=== PATIENT | male | born 1970 | race Caucasian/White ===

== ENCOUNTER 2018-03-15 01:51 | Outpatient (CLI) | payer MEDICAID, SELFPAY ==
[2018-03-15 08:35] LABS: HCT 45.3 % (40.0-50.0); HGB 15.6 g/dL (13.5-17.5); Mean Corp. HGB Concentration 34.4 g/dL (32.0-36.0); Mean Corpuscular Volume 90.1 fL (80-95); Mean Platelet Volume 9.7 fL (8.0-11.0); Platelet Count 231 x1000/uL (130-400); RBC 5.03 m/cumm (4.50-6.00); RBC Distribution Width 13.6 % (11.8-14.1); White Blood Cell Count 6.58 k/cumm (4.4-10.8)
[2018-03-15 09:47] LABS: ALT 42 U/L (12-78); AST 25 U/L (15-37); Albumin 3.6 g/dL (3.4-5.0); Alkaline Phosphatase 82 U/L (46-116); Anion Gap 8.6 mmol/L (3-11); BUN 17 mg/dL (7-18); Bilirubin, Total 0.4 mg/dL (0.2-1.0); CO2 28.4 mmol/L (21.0-32.0); CREATININE 1.26 mg/dL (0.70-1.30); Calcium 8.4 mg/dL (8.5-10.1); Chloride 105 mmol/L (98-107); Cholesterol 225 mg/dL (50-200); Glucose 88 mg/dL (70-100); HDL Cholesterol 38 mg/dL (40-60); LDL CHOLESTEROL 171 mg/dL (<100); Potassium 4.2 mmol/L (3.5-5.1); Sodium 142 mmol/L (136-145); Total Protein 6.9 g/dL (6.4-8.2); Triglyceride 122 mg/dL (30-150)
== END 2018-03-15 02:11 ==
PROVIDERS: PCP Family Medicine; Visit Provider Family Medicine
DX: Z13.220 Encounter for screening for lipoid disorders (principal); Z13.228 Encounter for screening for other metabolic disorders; Z13.0 Encounter for screening for diseases of the blood and blood-forming organs and certain disorders involving the immune mechanism; Z00.00 Encounter for general adult medical examination without abnormal findings
CPT/HCPCS: 36415; 80053; 80061; 83721; 85027

== ENCOUNTER 2018-05-14 06:11 | Day surgery (SDC) | payer MEDICAID, SELFPAY ==
[2018-05-14 06:22] VITALS: BP 134/87; PULSE 68; RESP 18; TEMP 36.7; O2SAT 96
[2018-05-14] MEDS: Lactated Ringers 1,000 ML 80 ML IV (06:43)
--- NOTE | 2018-05-14 06:45 | COLE_ITS ---
Date of service: 05/14/18 Time of Service: 08:41 Colonoscopy Report Date of procedure: 05/14/18 Pre-op diagnosis general: Family history of colon Cancer/ Screening Colonoscopy Post-op diagnosis procedure note: other (Right sided diverticulosis/ rectal polyp) Procedure: Colonoscopy with polypectomy by hot snare Surgeon: Bhakti Mendez Anesthesia proc note operative: MAC (Tere nielsen, STEREO OPERATOR/ ASA 3) Estimated blood loss (mL): 3 Pathology: other (rectal polyp) Complications: None Disposition: same day Indications: Mr. De Oliveira is a pleasant 47-year-old gentleman who was seen in the office for his first colonoscopy. He has a family history of colon cancer in his grandmother. Risks, benefits, complications were reviewed with him and he wished to proceed. No guarantees were given or implied. Prep: Miralax/Dulcolax Procedure Start Time: 08:41 Procedure End Time: 09:10 Retraction Time: 19 minutes Findings: Mild Right sided diverticulosis One rectal polyp (? skin tag) Procedure Description: After informed consent was obtained the patient was taken to the procedure room and placed in a left decubitous position. Monitors were applied and a time out was done. The patients name, date of , procedure, allergies to medications and metal in their body was reviewed. The patient was then sedated. Once sedated and comfortable a rectal exam was done. External exam was normal. Internal exam revealed a normal sphincter tone and there was one palpable polyp. The prostate could not be felt. The scope was then introduced and retro-flexed. No internal hemorrhoids were identified. There was a rectal polyp, possibly skin tag. The scope was then advanced to the cecum without difficulty. The TI and appendiceal orifice were identified. The prep was good. The scope was then slowly retracted over 19 minutes back into the rectum. The rectal polyp was removed with a hot snare. There was also some mild right sided diverticulosis. The scope was removed and the patient was woken up and taken back to Same day surgery in stable condition. The patient tolerated the procedure well and there were no immediate complications. Follow up: The patient should follow up in 5 years unless they develop changes in bowel habits or other new gastrointestinal complaints.
--- NOTE | 2018-05-14 06:48 | PDOC.DSDIS_ITS ---
Discharge Plan Disposition Patient Disposition: HOME Condition: Good Discharge Details Reason For Visit: SCREENING/ Family history Attending Provider: Bhakti Mendez Primary Care Provider: Rodri Joseph Home Meds and New Rx's Prescriptions: Continue atorvastatin 20 mg tablet 20 mg PO DAILY Qty: 90 RF: 3 coenzyme Q10 [CoQ-10] 30 mg Capsule 30 mg PO DAILY RF: 0 Discharge Instructions Instructions: Colonoscopy (DC), Diverticulosis (DC), Colorectal Polyps (DC) Additional Instructions: Findings: 1. Rectal polyp 2. Mild diverticulosis Follow up: 5 years new medications: none Please call if you develop: fevers >101.5 Nausea or Vomiting Abdominal pain that is not transient DAY SURGERY UNIT POST COLONOSCOPY INSTRUCTIONS 1. Because there will be medication in your system for the next 24 hours, you may feel a little sleepy. Your coordination will be affected. Therefore: a. Do not drive or operate dangerous equipment for 24 hours. b. Do not drink alcohol beverages for 24 hours (not even beer). c. Plan to go home and rest for the day. 2. Generally there are no restrictions on your activity after a day or so has gone by, but you may feel a bit fatigued for a few days. 3 After you arrive home you may have a light meal and return to a normal diet as you can tolerate it without feeling sick to your stomach. 4. After surgery, you may feel pain or discomfort. This should be only transient , but if it persists please contact your doctor. 5. If there are any questions regarding the findings of your procedure, please feel free to contact your doctor. 6. If you are unable to contact your doctor with a problem, contact the hospital at [phone]. 7. Continue all your regular medications unless directed otherwise. I understand the above instructions and have no questions. Signature of Patient or Responsible Adult Escort Date/Time Name of Responsible Adult Escort Signature of Nurse Date/Time Activity:: Activity as Tolerated Diet:: high fiber diet Discharge Orders Discharge Orders: Discharge Order (Routine); Ordered 05/14/18 Ordered By: Bhkati Mendez DS: Diagnosis Discharge Diagnosis (1) Rectal polyp: Status: Acute (2) Diverticulosis: Status: Acute (3) S/P colonoscopy: Status: Acute
--- NOTE | 2018-05-14 09:10 | BOWEL_PTH ---
PATIENT: Abel De Oliveira LOC: [facility] U#:[id number] AGE/SX: 47/M ROOM: RE05/14/[address]: Bhakti Mendez MD : 1970 BED: DIS: 05/14/2018 SPEC #: [id number] RECD: 05/14/18 11:33 STATUS: DANIEL RE #: [id number] BG: 05/14/18 09:[address]: Bhakti Mendez DEPT: Surgical Specimen RECD BY: Sandie Aceves ENTERED: 05/14/18 11:33 SP TYPE: Bowel OTHR DR: Rodri Joseph MD Tissues: 1 - BIOPSY BOWEL Procedures: GROSS AND MICRO LEVEL 4 Comments: [id number]
[2018-05-14 09:41] VITALS: BP 123/85; PULSE 59; RESP 18; TEMP 36.7; O2SAT 96
== END 2018-05-14 10:00 | disposition home or self-care (01) ==
PROVIDERS: PCP Family Medicine; Visit Provider Surgery
PROC: 0DJD8ZZ Inspection of Lower Intestinal Tract, Via Natural or Artificial Opening Endoscopic (ICD-10-PCS; CPT 45378; principal; 2018-05-14 07:30)
DX: Z12.11 Encounter for screening for malignant neoplasm of colon (principal); K62.1 Rectal polyp; K57.30 Diverticulosis of large intestine without perforation or abscess without bleeding; Z80.0 Family history of malignant neoplasm of digestive organs
CPT/HCPCS: 45385; 88305

== ENCOUNTER 2019-08-27 08:53 | Outpatient (CLI) | payer MEDICAID, SELFPAY ==
[2019-08-27 11:41] LABS: ALT 35 U/L (16-63); AST 20 U/L (15-37); Albumin 3.9 g/dL (3.4-5.0); Alkaline Phosphatase 63 U/L (46-116); Anion Gap 7.6 mmol/L (3-11); BUN 19 mg/dL (7-18); Bilirubin, Total 0.4 mg/dL (0.2-1.0); CO2 30.4 mmol/L (21.0-32.0); CREATININE 1.05 mg/dL (0.70-1.30); Calcium 8.8 mg/dL (8.5-10.1); Calculated LDL 124 mg/dL (<100); Chloride 102 mmol/L (98-107); Cholesterol 183 mg/dL (<200); Glucose 85 mg/dL (74-106); HDL Cholesterol 44 mg/dL (40-60); Potassium 4.4 mmol/L (3.5-5.1); Sodium 140 mmol/L (136-145); Total Protein 7.2 g/dL (6.4-8.2); Triglyceride 78 mg/dL (<150)
== END 2019-08-27 09:13 ==
PROVIDERS: PCP Family Medicine; Visit Provider Family Medicine
DX: E78.5 Hyperlipidemia, unspecified (principal)
CPT/HCPCS: 36415; 80053; 80061

== ENCOUNTER 2019-08-28 09:33 | Outpatient (CLI) | payer MEDICAID, SELFPAY ==
--- NOTE | 2019-08-28 10:15 | DI.US_ITS ---
EXAM: US SCROTUM AND US HERNIA CLINICAL HISTORY: right scrotal/inguinal mass, R19.09 TECHNIQUE: Ultrasound performed using standard protocol. COMPARISON: US HERNIA from 08/28/2019 FINDINGS: Scrotal ultrasound and ultrasound of the inguinal region are interpreted in conjunction. The testes are homogeneous in echotexture and show normal vascular flow with no intra testicular mass identified . The epididymi are unremarkable in appearance bilaterally. No hydrocele seen. There are bilateral varicoceles which measure 3.5-4 cm in diameter bilaterally. There is indeterminate finding of dilated spermatic cord versus which may be associated with a small right inguinal hernia, the findings are somewhat inconclusive and correlation with abdominal and pelv ic CT is recommended to evaluate the possibility hernia. DATA REPOSITORY:
== END 2019-08-28 09:53 ==
PROVIDERS: PCP Family Medicine; Visit Provider Family Medicine
DX: N50.89 Other specified disorders of the male genital organs (principal); I86.1 Scrotal varices; R10.31 Right lower quadrant pain
CPT/HCPCS: 76857; 76870

== ENCOUNTER 2019-09-11 00:45 | Outpatient (CLI) | payer MEDICAID, SELFPAY ==
--- NOTE | 2019-09-11 06:30 | DI.CT_ITS ---
EXAM: CT ABDOMEN PELVIS W CLINICAL HISTORY: F/U ABNL US,INGUINAL MASS,R19.09. TECHNIQUE: Imaging Protocol: Axial computed tomography images with coronal and sagittal reformatted images were created and reviewed CONTRAST MATERIAL: Intravenous: Omnipaque 350 Contrast volume:100 ml Oral: yes COMPARISON: US HERNIA from 08/28/2019 FINDINGS: ABDOMEN: Lung Bases: Normal where visualized. Liver: Mild hepatic steatosis. No measurable mass. Gallbladder and biliary tract: No radiodense calculus or dilation. Pancreas: Normal density, no abnormal calcifications or inflammatory process. Spleen: Normal. Kidneys: Normal size, contour and axis. No radiodense stones or obstructive uropathy. No masses seen. Adrenal glands: No masses seen. Abdominal Aorta: Abdominal portion non-dilated. Soft tissues: There is a small fatty containing umbilical hernia. There is a small fatty containing left inguinal hernia. The appendix is seen extending into the right inguinal canal along with mesent michelle fat. The base of the cecum lies at the orifice of the hernia. PELVIS: Bladder: Symmetric distention, no gross wall thickening. Bowel: No obstruction or bowel wall thickening. There is no free air or free fluid. Peritoneal cavity: No ascites, collection or mesenteric inflammatory response. Bones: Mild degenerative disc changes. Reproductive organs: Within normal limits. Lymph nodes: Unremarkable. Impression: Right inguinal hernia containing mesenteric fat as well as the appendix. There is no evidence of laquita endicitis. A small fatty containing left inguinal hernia and small fatty containing umbilical hernia are also seen.. DATA REPOSITORY: All CT scans at this facility are submitted to the National Radiology Data Registry (NRDR) Dose Index Registry (DIR) with the [employer] (ACR). RADIATION OPTIMIZATION: All CT scans at this facility use at least one of these dose optimization te chniques: automated exposure control; mA and/or kV adjustment per patient size (includes targeted exa ms where dose is matched to clinical indication); or iterative reconstruction.
[2019-09-11] MEDS: Omnipaque 350 MG/ML 100 ML BTL IJ (09:35)
[2019-09-11] MEDS: Omnipaque 350 MG/ML 50 ML BTL PO (09:36)
== END 2019-09-11 01:05 ==
PROVIDERS: PCP Family Medicine; Visit Provider Family Medicine
DX: R19.03 Right lower quadrant abdominal swelling, mass and lump (principal); K40.20 Bilateral inguinal hernia, without obstruction or gangrene, not specified as recurrent; K42.9 Umbilical hernia without obstruction or gangrene; K76.0 Fatty (change of) liver, not elsewhere classified
CPT/HCPCS: 74177; J3490; Q9967

== ENCOUNTER 2019-09-16 12:45 | Observation (INO) | payer MEDICAID, SELFPAY ==
[2019-09-16] VITALS (15 sets, daily range): BP systolic 103–137; BP diastolic 69–89; PULSE 51–68; RESP 13–21; TEMP 36.1–36.6; O2SAT 94–99
[2019-09-16] MEDS: Acetaminophen 500 MG TAB 1000 MG PO ×3 (08:36→20:38)
[2019-09-16] MEDS: Gabapentin 300 MG CAP PO (08:37)
[2019-09-16] MEDS: Normal Saline 1,000 ML 120 ML IV (08:50)
[2019-09-16] MEDS: ceFAZolin 2 GM/50 ML BAG IVPB (09:26)
[2019-09-16] MEDS: Bupivacaine 0.25% Pres-Free 10 ML VIAL (09:47)
[2019-09-16] MEDS: Bupivacaine 0.25% Pres-Free 30 ML VIAL (09:47)
[2019-09-16] MEDS: PIPERACILLIN/TAZO 4.5 GM in Normal Saline 100 ML IVPB ×2 (11:40→20:40)
--- NOTE | 2019-09-16 11:45 | APP_PTH ---
PATIENT: Abel De Oliveira LOC: U#:[id number] AGE/SX: 49/M ROOM: 229 RE09/16/[address]: Jaci Adnrews : 1970 BED: A DIS: 09/17/2019 SPEC #: [id number] RECD: 09/16/19 17:42 STATUS: DANIEL REQ #: [id number] BG: 09/16/19 11:[address]: Jaci Andrews DEPT: Surgical Specimen RECD BY: Sandie Aceves ENTERED: 09/16/19 17:43 SP TYPE: Appendix OTHR DR: Rodri Joseph MD Tissues: 1 - APPENDIX NOT INCIDENTAL Procedures: GROSS AND MICRO LEVEL 3 Comments: [id number]
--- NOTE | 2019-09-16 12:32 | W.PM.OP ---
Date of service: 09/16/19 Time of Service: 12:32 Operative Note Operative Note DATE OF PROCEDURE: 09/16/19 PRE-OP DIAGNOSIS: R non- reducible inguinal hernia w/ bowel. small L inguinal hernia w/ lipoma only POST-OP DIAGNOSIS: other PROCEDURE: L groin exploration and ligation x3 lipomas. no mesh R groin exploraiton. exicion of lipoma. open repair w/ mesh. appendectomy SURGEON: Jaci Andrews PROFESSIONAL SYSTEM ADMINISTRATOR: Javier Ochoa PROFESSIONAL SYSTEM ADMINISTRATOR: Ira Stroud ANESTHESIA: regional, local and spinal ESTIMATED BLOOD LOSS: 8 Patient was transported to: PACU Patient's condition: stable Implants: see RN notes R mesh Procedure Description: COMPLICATIONS: The patient tolerated the procedure well without complications. INDICATIONS: regarding symptomatic right inguinal hernia that has failed outpatient conservative medical management and he is here today for repair, as well as a small left inguina lhernia noted on CT only containing fat. Informed consent was obtained, explaining risks and benefits of the procedure including but not limited to bleeding, infection, pneumonia, blood clots, chronic pain, chronic numbness, damage to testicle resulting in removal, recurrence, reaction to Mesh necessitating removal, and other unforetold complications and complications of anesthesia. .dict.
[2019-09-16] MEDS: Lactated Ringers 1,000 ML 100 ML IV (12:47)
[2019-09-16] MEDS: Normal Saline 1,000 ML 75 ML IV (13:28)
--- NOTE | 2019-09-16 14:02 | ROE_ITS ---
DATE: September 16, 2019 Preoperative Diagnosis: Small left inguinal hernia containing fat only and right inguinal hernia containing colon and appendix. Postoperative Diagnosis: Same. Operation: Left open groin exploration and repair of hernia without mesh. Right open inguinal groin exploration, appendectomy and right inguinal hernia repair with mesh. Surgeon: Jaci Andrews D.O. Hammer Operator: Luis Eduardo Wagner PA Anesthesia: Spinal and bilateral TAP block Estimated Blood Loss: 8 cc. The patient tolerated the procedure without complications. History: Mr. De Oliveira is a 49 year-old male seen at the request of Dr. Joseph, his primary care provider, regarding a symptomatic right inguinal hernia and is here today for repair. The right inguinal hernia is quite large. It does contain part of his colon and his appendix. It is not reducible but is not strangulated. The left hernia is a small incidental CT finding. I discussed the pros and cons of repair with the patient and his . He has decided to do both sides today and hopefully go home the same day. Informed consent was obtained explaining the risks and benefits of the procedure including, but not limited to bleeding, infection, pneumonia, blood clots, chronic pain, chronic numbness, damage to the testicle, recurrence, reaction to the mesh requiring removal, complications of anesthesia and other unforetold complications. Procedure: Spinal anesthesia was administered per the Department of Anesthesia and preop TAP blocks are done under ultrasound guidance by anesthesia as well. The patient was then placed in the supine position and all surfaces padded. He was prepped and draped in the usual sterile fashion using Betadine scrub solution. Time-out was performed. He did receive preop antibiotics of a first generation cephalosporin. 10 cc. per side of 1/4% Lidocaine was used for local anesthetization. The left side was tended to first. A #10 blade was used to make an incision in the left groin 2 finger breadths above the ilioinguinal ligament. Electrocautery was used to provide hemostasis and dissect down to the cord. His external oblique is obliterated. The cord structures were elevated and a drain was placed across for manipulation. He has two large lipomas that are dissected off the cord and these are tied off and then returned to the abdominal cavity. His external ring does not appear enlarged and will only admit the tip of the fingertip and is not really enlarged so that we even can fit a small mesh into it. One stitch of #0 Vicryl was placed to tighten this area up slightly but a mesh was not placed. Vessels and cord structures are still freely mobile. The site was irrigated. Deep tissues were approximated with #2-0 Vicryl in a running fashion. The skin was closed with #4-0 Monocryl in a running subcuticular fashion and skin clue. Gloves and sharps were exchanged. The right side was then attended to. Again 10 cc. of 1/4% Marcaine was used for local anesthetization. #10 blade was used to make a 2.5 inch incision over the external ring. Electrocautery was used to dissect down to the cord structures. Again the external oblique was obliterated. There was a lot of scarring around the cord. The cord is elevated and dissected out.There is an indirect sac on the cord. This is dissected out and returned to the abdominal cavity. Independently of the sac, and not within the sac, his appendix is herniated through the external ring and is intimately adhered to the cord structures and down into his scrotum as well as a large piece of epiploicae and fatty tissue that is hanging off the appendix. The appendix and all the fatty mesenteric attachments are dissected off the cord and off the scrotum and part of the tip of the cecum as well. When we attempt to return this through the canal and into the abdomen, I cannot get the entirety of the fatty attachments back into the abdomen and it causes pretty significant nausea and the patient actually vomited. He did not aspirate. He was awake and able to protect his airway throughout the procedure. Even with removing some of the fatty attachments with the LigaSure, I still cannot reduce the volume of contents that is attached to the appendix and get this to return into the abdominal cavity. A decision was then made to remove the appendix. Towels were placed along the field to isolate the appendix. The appendix is then dissected off. The artery was dissected out and clips are placed across this and this is ligated. A JUDSON stapler was placed across the base of the appendix excising the appendix from the cecum and then the stump is buried with two stitches of #4-0 Vicryl. Fatty attachments again are taken down from the cecum using LigaSure and all mesentery is passed off the field. All instruments that were used to do the appendectomy are then passed off the field. Gloves are changed and towels are removed and clean towels and instruments are used. There was no bleeding or enteric leakage. We were able to reduce this volume into the abdomen easily and without causing the patient discomfort or vomiting. His external ring is dilated. He certainly has a hernia but it is not that large. A large plug is then placed into the external ring and over-sewn using #4-0 Vicryl. The patch was then placed in the pubic tubercle and brought around the cord structures and tucked under the remnant of the external oblique. He really does not have much in the way of fascial left to sew to. The cord structures are intact. No nerve could be identified on either side. The wounds were both copiously irrigated prior to closure. Again deep tissues were approximated in two layers using #2-0 Vicryl, the skin was closed with #4-0 Monocryl and skin glue was applied. The patient tolerated the procedure well without complications and transferred to the Recovery Room in stable condition. Because we did do an appendectomy, and I elected to place the mesh, we will admit him overnight for observation, for IV antibiotics and pain control. The patient and is were apprised of the findings. He did well during surgery.
[2019-09-16] MEDS: Lactobacillus Acidophilus CAP 1 CAP PO ×2 (14:54→20:39)
[2019-09-16] MEDS: Ketorolac 30 MG/ML VIAL IVP ×2 (16:25→21:44)
--- NOTE | 2019-09-16 16:38 | W.PM.PROGNOT ---
Date of Service Date of service: 09/16/19 Time of Service: 16:38 Assessment and Plan Assessment and plan (1) S/P inguinal hernia repair using synthetic patch: Status: Acute Assessment and plan: also s/p appendectomy . I discussed with the patient and/or there family about the findings in surgery and the pt's progress. We reviewed expectations for progress in the hospital; what the pt could expect for recovery time and length of stay. We discussed the importance of walking and pulmonary toilet to avoid blood clots and pneumonia. Continue current plans for pulmonary toilet, GI and DVT prophylaxis. We shall continue the current plan for pain management as it is at an appropriate level and working well for the pt. Appropriate measures will be taken for constipation prevention as well, and this was also reviewed with the pt. wound care plan was reviewed with nursing as well. -pt has not urinated again- orders left for st cath prn -abx and probiotics for 5 days. monitor for infection -no heavy lifting for 2 wks -supportive post OP cares. see orders Subjective Subjective Interval history since last seen: pt doing ok. No pain yet. also has not urinated yet. d/w pt findings at the time of surgery. I did reviewed his appendix. But that put him at higher risk for mesh infection. Will keep him in hosp on IV abx. will d/c pt home on abx. The patient is doing well post-op. There pain is well controlled. They are having no nausea or vomiting. The pt is not having any chest pain or SOB, productive cough; no calf pain or swelling. The pt pain is adequately controlled. The case was discussed with nursing and patients progress reviewed. All of the pt's home medications were addressed and adjusted accordingly. Exam Const Other: HEENT: no janudice. no eye pain/drainage/redness/swelling. mild sore throat cardio- NSR no chest pain, BP stable. pulm: no sob or productive cough. no hemoptysis insicion- clean/dry. dressing intact no excessive bleeding or drainage Objective Objective Clinical Data: Vital Signs Temperature 36.6 C 09/16/19 15:10 Temperature Source Temporal Artery Scan 09/16/19 15:10 Pulse 66 09/16/19 15:10 Pulse Rhythm Regular 09/16/19 08:11 Respiratory Rate 18 09/16/19 15:10 Blood Pressure 137/80 09/16/19 15:10 Pulse Oximetry 95 09/16/19 15:10 Oxygen Delivery Method Room Air 09/16/19 15:10 Oxygen Flow Rate 0 09/16/19 15:10 Pain Level 3 09/16/19 15:10 Intake & Output 09/15/19 09/16/19 09/16/19 23:59 11:59 23:59 Intake Total 50 / 1360 1310 / 1360 Balance 50 / 1360 1310 / 1360 Weight 130.635 kg 130.635 kg Intake: IV 50 / 1160 1110 / 1160 Oral 200 / 200 Other: Emesis Description None
[2019-09-16] MEDS: Docusate Sodium 100 MG CAP PO (20:38)
[2019-09-16] MEDS: Normal Saline Flush 10 ML SYR IVP (21:44)
--- NOTE | 2019-09-16 22:23 | DSE_ITS ---
Date of service: 09/17/19 Time of Service: 08:00 DS: Diagnosis Discharge Diagnosis (1) S/P inguinal hernia repair using synthetic patch: Status: Acute (2) S/P appendectomy: Status: Acute Discharge Plan Disposition Patient Disposition: HOME Condition: Improving Discharge Details Reason For Visit: S/P OPEN B/L INGUINAL HERNIAS W/MESH &APPENDECTOMY Admit Date/Time: 09/16/19 12:45 Admit Provider: Jaci Andrews Attending Provider: Jaci Andrews Primary Care Provider: Rodri Joseph Home Meds and New Rx's Prescriptions: New tramadol 50 mg Tablet 50 mg PO Q6H PRN PRN (Reason: Pain) 14 Days Qty: 20 RF: 0 ibuprofen 600 mg tablet 600 mg PO Q6H PRN (Reason: pain) 21 Days Qty: 60 RF: 3 Lactobacillus acidophilus 1 billion cell capsule 1,000 mmu cells PO BID 30 Days Qty: 60 RF: 3 amoxicillin-pot clavulanate [Augmentin] 875-125 mg tablet 1 tab PO Q12H Qty: 10 RF: 0 Continued atorvastatin 20 mg tablet 20 mg PO DAILY Qty: 90 RF: 3 Discharge Instructions Additional Instructions: HERNIA REPAIR ? POSTOPERATIVE INSTRUCTIONS Patients who have this type of surgery can usually be expected to return to work within two- three weeks and have minimal amounts of discomfort. ? ACTIVITY: The day of surgery should be spent resting. However, you can be up for short periods of time, I.E., going to the bathroom or kitchen. Avoid lifting or straining. On the day following surgery, you can be up and about as desired. ? LIFTING: Restrict your lifting to no more than five (5) pounds for the first week following surgery. ? DIET: There are no dietary restrictions following surgery. However, you may want to start with small amounts of liquids to avoid nausea the day of surgery. ? INCISION CARE: After 24 hours you may shower. An ice bag may be applied to the incision for 72 hours following surgery. Always wrap the ice in a towel; do not apply ice directly to skin. Than Twenty minutes on and 20 minutes off. ? SIGNS OF INFECTION: It is not unusual to have some black and blue discoloration of the skin around the incision, but also scrotum and penis. It will slowly disappear. If you have any increased redness, drainage, fever (above 100 degrees), please contact your doctor for an examination. ? DISCOMFORT: You may expect to have some mild discomfort at the incision sight. If severe pain develops you should contact your doctor for further instructions. ? URINATION: Patients who have surgery occasionally have problems urinating. If you experience problems and are not able to urinate within 6 hours following your surgery, please call your doctor immediately or go to your nearest Emergency Room for evaluation. ? DRIVING: NO driving for five (5) days after surgery ? MEDICATIONS: Alternate Tylenol 1000mg by mouth every 8hours and Ibuprofen 600mg every 6hours. Take the Tylenol and ibuprofen continuously for the first 72hrs- not just when you have pain. Use the tramadol for breakthrough pain. Use ice 20 minutes off/on continuously for the first 72hours. If you are taking narcotic pain medication, follow the instructions on the label and do not drive. Pain medications can make you very constipated. Make sure you are moving your bowels daily. If not, take Miralax, milk of magnesia or magnesium citrate. ? REPORT: Unusual swelling, severe pain, unresolved nausea, signs of infection, or difficulty in urination to your surgeon. Follow up in clinic with Dr. Andrews on Monday. [phone] Stand Alone Forms: Nursing Discharge Form Referrals: Jaci Andrews DO [OSTEOPATHIC DOCTOR] - 09/20/19 10:00 am Activity:: no lifting over 5#'s x2 wks. no driving for 5 days Equipment/Supplies:: No Equipment Needed Diet:: Normal Diet Discharge Orders Discharge Orders: Discharge Order (Routine); Ordered 09/17/19 Ordered By: Jaci Andrews DS: Summary Status at Discharge Functional status at discharge: independent ambulation Overall status at discharge: patient is back to baseline Mental Status: mental status grossly normal Speech and Movement: speech and movement normal Mood: congruent mood Affect: normal affect Exam Psych Mental Status: mental status grossly normal Speech and Movement: speech and movement normal Mood: congruent mood Affect: normal affect DS: Data Vitals/I&O Vitals and I&O: Vital Signs Temperature 36.6 C 09/16/19 21:06 Temperature Source Tympanic 09/16/19 21:06 Pulse 61 09/16/19 21:06 Pulse Rhythm Regular 09/16/19 21:59 Respiratory Rate 18 04/06/20 21:55 Respiratory Effort 09/16/19 21:59 Respiratory Depth Normal 09/16/19 21:59 Respiratory Pattern Normal 09/16/19 21:59 Blood Pressure 130/86 09/16/19 21:06 Pulse Oximetry 99 09/16/19 21:55 Oxygen Delivery Method Room Air 09/16/19 21:55 Oxygen Flow Rate 0 09/16/19 21:55 Pain Level 2 09/16/19 21:44 Intake & Output 09/15/19 09/16/19 09/16/19 23:59 11:59 23:59 Intake Total 50 / 1460 1410 / 1460 Output Total 250 / 250 Balance 50 / 1210 1160 / 1210 Weight 130.635 kg 130.635 kg Intake: IV 50 / 1160 1110 / 1160 Oral 300 / 300 Output: Urine 250 / 250 Other: Urine Color Yellow Urine Appearance Clear Urine Odor None Emesis Description None Voiding Methods Toilet FOR[facility] Medical History (Updated 09/16/19 @ 09:06 by Jaci Andrews DO) Bilat ing hernia (Acute) Family history of colon cancer (Chronic) Per Dr Joseph note, grandmother of colon cancer at age 65 and patient with fecal urgency after eating. Fecal urgency (Acute) HTN (hypertension) (Chronic) 09/13/19: Per pt. -BR Pain of left heel (Acute) Patellofemoral disorder of left knee (Acute) Plantar fasciitis of left foot (Acute) Testicle lump (Chronic) right Varicose veins of both lower extremities (Chronic) Surgical History (Updated 09/17/19 @ 09:53 by Jaci Andrews DO) H/O cataract removal with insertion of prosthetic lens (Acute) 09/13/19: Pt unsure which side he had surgery on. -BR H/O colonoscopy (Chronic) H/O vasectomy (Acute) S/P appendectomy (Acute) S/P inguinal hernia repair using synthetic patch (Acute) Social History Smoking/Tobacco Use Status: Current every day Tobacco Type: smokeless tobacco Smokeless tobacco user: chewing tobacco Quit status: considering quitting Alcohol Intake: current Alcohol Intake frequency: a few times a month Alcohol type: beer Drug use: Never Substance use type: does not use Do you feel safe at home: Yes Do you feel safe in your relationship?: Yes
[2019-09-17] MEDS: Acetaminophen 500 MG TAB 1000 MG PO ×2 (01:15→08:46)
[2019-09-17] MEDS: Normal Saline Flush 10 ML SYR IVP ×4 (01:17→11:22)
[2019-09-17] MEDS: Ketorolac 30 MG/ML VIAL IVP ×2 (03:29→11:22)
[2019-09-17] MEDS: PIPERACILLIN/TAZO 4.5 GM in Normal Saline 100 ML IVPB ×2 (03:33→11:21)
[2019-09-17 04:22] VITALS: O2SAT 99
[2019-09-17 04:35] VITALS: BP 136/82; PULSE 56; RESP 18; TEMP 36.7; O2SAT 98
[2019-09-17 07:48] VITALS: BP 129/86; PULSE 60; RESP 17; O2SAT 99
[2019-09-17] MEDS: Docusate Sodium 100 MG CAP PO (08:44)
[2019-09-17] MEDS: Lactobacillus Acidophilus CAP 1 CAP PO (08:44)
--- NOTE | 2019-09-17 10:57 | PDOC.CMIN ---
- If Service Date Differs Date of service: 09/17/19 Time of Service: 10:57 Care Management Initial Assess REASON FOR HOSPITALIZATION:: left inguinal hernia PAST MEDICAL HISTORY/PAST SURGICAL HISTORY:: PMH: Bilateral inguinal hernia, HTN, fecal urgency, patellofemoral disorder of left knee, varicose veins, bilateral LE, testicle lump. PSH: cataract extraction, colonoscopy, vasectomy, inguinal hernia repair with appendectomy PREVIOUS FUNCTIONAL STATUS/SOCIAL/FAMILY SUPPORTS:: Abel lives with his Rohini and 2 children in a single family home in [facility]. He is independent with all activities and self care and is self-employed as a line haul truck driver. He does not receive any community services. ADVANCE DIRECTIVES:: None on file Has patient been provided with information about the portal?: No Did the patient sign up for the portal?: No CODE STATUS:: Full Code INSURANCE COVERAGE / FINANCIAL ISSUES:: Medicaid CURRENT HOME/COMMUNITY SERVICES/EQUIPMENT:: none currently PRIMARY CARE PHYSICIAN:: Rodri Coleman POTENTIAL DISCHARGE NEEDS:: Follow up with PCP, surgeon and discharge plan of care PATIENT/FAMILY EDUCATION NEEDS:: Discharge plan, limitations, follow up plan and Ask Me Three. TRANSPORTATION:: via private vehicle with family PLAN:: Abel will be discharged home with no new services. He will foillow up with his surgeon and dicharge plan of care. He will transport via private vehicle with his .
--- NOTE | 2019-09-17 16:02 | PDOC.CMDIS ---
- If Service Date Differs Date of service: 09/17/19 Time of Service: 16:02 LACE Index Scoring Tool - Questions: Length of Stay (in days): 1 Acuity (Admit via E.D.?): No E.D. Visits: 0 - Answers: Total Score: 1 Risk of Readmission: Low Risk Care Management Discharge Reason for Hospitalization: left inguinal hernia Discharge Plan: Abel will be discharged home with no new services. He will foillow up with his surgeon and dicharge plan of care. He will transport via private vehicle with his . Patient/Family Education Needs: Discharge plan, limitations, follow up plan and Ask Me Three.
[2019-09-18 10:16] LABS: HIV-1/2 Ag & Ab Screen Negative (Negative)
[2019-09-18 10:17] LABS: Hepatitis C Ab w Rflx HCV PCR Negative (Negative)
== END 2019-09-17 12:52 | disposition home or self-care (01) ==
LOC: MS 13:26
PROVIDERS: Admitting Provider Surgery; PCP Family Medicine; Visit Provider Surgery
PROC: 0YU50JZ Supplement Right Inguinal Region with Synthetic Substitute, Open Approach (ICD-10-PCS; CPT 49505; principal; 2019-09-16 09:00)
PROC: 0DTJ0ZZ Resection of Appendix, Open Approach (ICD-10-PCS; CPT 44950; 2019-09-16 09:00)
DX: K40.30 Unilateral inguinal hernia, with obstruction, without gangrene, not specified as recurrent (principal); K40.90 Unilateral inguinal hernia, without obstruction or gangrene, not specified as recurrent; K38.2 Diverticulum of appendix
CPT/HCPCS: 49505; 44955; 36415; 76942; 86803; 87389; 99238; NC; 88304; C1781; G0378; J0690; J1885; J2250; J2405; J2543; J2704; J2765; J3010

== ENCOUNTER 2021-06-18 12:27 | Outpatient (REF) | payer MEDICAID, SELFPAY ==
[2021-06-19 15:47] LABS: COVID-19 RT-PCR UVMMC Result Negative (Negative)
== END 2021-06-18 12:28 | disposition home or self-care (01) ==
LOC: LBN 12:27
PROVIDERS: PCP Family Medicine; Visit Provider Family Medicine
DX: Z20.822 Contact with and (suspected) exposure to COVID-19 (principal)
CPT/HCPCS: U0003

== ENCOUNTER 2022-01-15 15:12 | Emergency (ER) | payer MEDICAID, SELFPAY ==
--- NOTE | 2022-01-15 15:15 | DI.RAD_ITS ---
Exam(s) XR KNEE LT 3V AP,LAT,KAYLAH EXAM: XR KNEE LT 3V AP,LAT,KAYLAH CLINICAL HISTORY: pain. TECHNIQUE: 2D digital imaging was performed. Three views. COMPARISON: No exams were available for comparison FINDINGS: BONES: No acute fracture is present. No bony destructive lesion is seen. JOINTS: The knee is normally aligned. No joint effusion is seen. Mild degenerative changes. SOFT TISSUE: Normal. IMPRESSION: No acute abnormality. DATA REPOSITORY: RADIATION DOSE DELIVERED:
[2022-01-15 15:18] VITALS: BP 131/79; PULSE 70; RESP 16; TEMP 36.2; O2SAT 99
--- NOTE | 2022-01-15 15:49 | W.ED.GENAD ---
Discharge Plan Disposition Patient Disposition: HOME Discharge Details Clinical Impression: Acute internal derangement of left knee Primary Care Provider: Maliha Miller ED Provider: Chaka Powell Home Meds and New Rx's Prescriptions: No Action atorvastatin 20 mg tablet 20 mg PO DAILY Qty: 90 3RF irbesartan 150 mg tablet 150 mg PO DAILY Qty: 90 3RF Discharge Instructions Additional Instructions: He will take Tylenol Motrin for the pain. Please follow-up with your primary care doctor for further evaluation and possible outpatient mri Discharge Data Discharge Date/Time-TO BE ENTERED AT DEPARTURE: 01/15/22 17:18 HPI General Date/Time Provider Initiated Documentation: 01/15/22 15:22. HPI Narrative: Left knee pain for the past few months. He states that he twisted his knee locking this spring. Since then he has been having left knee pain with intermittent swelling. Swelling is worse with ice. The pain is worse with his knee brace. No recurrent trauma. The pain is moderate. It is achy pain. No radiation of the pain. He has not seen his PCP. He came to the emergency department today to see if we could do for his knee. No recurrent trauma. He has had a few episodes where he feels that his knee will give way. No locking , noclicking Related Data Home Medications Medication Instructions Recorded Confirmed atorvastatin 20 mg tablet 20 mg PO DAILY #90 tabs 06/18/21 01/15/22 irbesartan 150 mg tablet 150 mg PO DAILY #90 tabs 06/18/21 01/15/22 Previous Rx's Medication Instructions Recorded atorvastatin 20 mg tablet 20 mg PO DAILY #90 tabs 06/18/21 irbesartan 150 mg tablet 150 mg PO DAILY #90 tabs 06/18/21 Allergies Allergy/AdvReac Type Severity Reaction Status Date / Time No Known Allergies Allergy Verified 01/15/22 15:22 General Stated Complaint: Orthopedic MATT: 4 Review of Systems Narrative: Constitutional negative for fever and chills. No malaise no fatigue. MSK see HPI Skin no rashes Neuro no paresthesias no focal weakness Hematological not on blood thinners PFSH All Active Problems (Updated 01/15/22 @ 15:54 by Chaka Powell MD) Acute internal derangement of left knee (Acute) Obesities, morbid (Acute) HTN (hypertension) (Chronic) Varicose veins of both lower extremities (Acute) Hyperlipidemia (Chronic) Reviewed diet with patient. Appears to be. Atorvastatin 20 mg daily along with co-Q10 60 mg daily recheck lipid panel and ALT in 3 months Tobacco chew use (Chronic) Encouraged abstinence. Prescribed process of cardiovascular damage to nicotine-induced vasoconstriction. Rectal polyp (Acute ~05/14/18) Medical History Bilat ing hernia Diverticulosis (~05/14/18) Family history of hyperlipidemia Family hx of colon cancer requiring screening colonoscopy (01/16/18) Pain of left heel Patellofemoral disorder of left knee Plantar fasciitis of left foot Plantar fasciitis, right Testicle lump right Varicose veins of both lower extremities Surgical History (Updated 04/06/21 @ 17:25 by Maliha Miller MD) H/O cataract removal with insertion of prosthetic lens 09/13/19: Pt unsure which side he had surgery on. -BR H/O colonoscopy H/O vasectomy S/P appendectomy S/P inguinal hernia repair using synthetic patch Family History (Updated 04/07/21 @ 08:57 by Maliha Miller MD) Mother No problems noted. Father Hyperlipidemia Hypertension Sister No problems noted. Brother No problems noted. Son No problems noted. Daughter No problems noted. Social History (Updated 04/07/21 @ 13:23 by Mejia Keita) Smoking/Tobacco Use Status: Current every day Tobacco Type: smokeless tobacco Smokeless tobacco user: chewing tobacco Quit status: not considering quitting Second Hand Exposure: Yes Smoking risk assessment performed?: Yes Alcohol Intake: current Alcohol Intake frequency: holidays/special occasions only Alcohol type: beer Drug use: Never Substance use type: does not use Caregiver/Support person: No Household members: spouse and children Housing: house Number of Children: 2 Education Level: high school Do you need help understanding health information?: Never current occupation: working in construction Pets and animals: Yes Pets and animals: cat(s) and dog(s) Sexually active: No Do you think of yourself as: straight/heterosexual Current gender identity: male What is your relationship status?: How often do you talk on the phone with friends or family?: twice per week How often do you get together with friends or relatives?: twice per week How often do you attend buddhism or judaism services?: decline to answer Do you belong to any clubs or organized social groups?: no Panel score (0-1 are the most socially isolated patients): 2 What type of physical activity do you participate in: walking, advised to exercise at least 150 min/week (moderate intensity aerobic) and advised to perform resistance training at least 2x/week Duration: < 15 minutes/day Joyce/Taoist: None Special joyce needs: No Seatbelt use: never Helmet use: No Drive intox or ride w/intox local delivery driver: No Do you feel safe at home: Yes Do you feel safe in your relationship?: Yes Exam Narrative Exam Narrative: Awake alert [place] x3 calm no acute distress high BMI. Respiratory normal work of breathing. Cardiovascular normal cap refill good skin color. Left knee. Mild effusion. Full range of motion left knee. No ligament laxity. No point tenderness. Skin intact. Neuro grossly Course X-rays of the knee does not reveal any acute abnormalities. Patient diagnosed with internal derangement of the left knee. He has been told to follow-up with his PCP for further evaluation probable outpatient MRI and referral to Ortho if necessary Vital Signs Vital signs: Vital Signs Temperature 36.2 C L 01/15/22 15:18 Pulse 70 01/15/22 15:18 Respiratory Rate 16 01/15/22 15:18 Blood Pressure 131/79 01/15/22 15:18 Pulse Oximetry 99 01/15/22 15:18 Temperature 36.2 C L 01/15/22 15:18 Temperature Source Temporal Artery Scan 01/15/22 15:18 Pulse 70 01/15/22 15:18 Respiratory Rate 16 01/15/22 15:18 Blood Pressure 131/79 01/15/22 15:18 Blood Pressure Position Sitting 01/15/22 15:18 Pulse Oximetry 99 01/15/22 15:18 Oxygen Delivery Method Room Air 01/15/22 15:18 Oxygen Flow Rate 0 01/15/22 15:18 Pain Level 0 01/15/22 15:18 Comment 01/15/22 15:18
--- NOTE | 2022-01-15 16:08 | DI.VRAD_ITS ---
PROCEDURE INFORMATION: Exam: XR Left Knee Exam date and time: 01/15/2022 3:33 PM Age: 51 years old Clinical indication: Pain; Knee; Left TECHNIQUE: Imaging protocol: Radiologic exam of the Left knee. Views: 3 views. COMPARISON: No relevant prior studies available. FINDINGS: Bones/joints: There is some mild joint space narrowing of the patellofemoral articulation. There is some irregularity of the lateral femoral condyle, nonacute. Medial and lateral joint spaces are well preserved. Soft tissues: Normal. IMPRESSION: No evidence for acute abnormality. Early degenerative change noted. Dictated and Authenticated by: Negrita Esqueda MD. Ordering:CHRIS Lema MD
== END 2022-01-15 17:18 | disposition home or self-care (01) ==
PROVIDERS: Emergency Provider Emergency Medicine; PCP Family Medicine
DX: M23.92 Unspecified internal derangement of left knee (principal); F17.220 Nicotine dependence, chewing tobacco, uncomplicated
CPT/HCPCS: 73562; 99283; 99282

== ENCOUNTER → 2022-02-17 02:20 | Outpatient (CLI) | payer MEDICAID, SELFPAY ==
--- NOTE | 2022-02-17 06:45 | DI.MRI_ITS ---
Exam(s) MR LOWER JOINT LT WO EXAM: MR LOWER JOINT LT WO CLINICAL HISTORY: Left knee pain x 6mo,? MENISCUS TEAR,M25.562. TECHNIQUE: Multiplanar multisequence MRI was performed. COMPARISON: CR,XR XR KNEE LT 3V AP,LAT,KAYLAH from 01/15/2022 FINDINGS: BONES: There is no fracture or contusion pattern. JOINTS: There is mild thinning of the articular cartilage in the lateral femoral tibial joint with as sociated subchondral edema. There is also mild thinning of the articular cartilage in the patella wi th underlying subchondral edema. There is mild spurring of the posterior patella. There is a small joint effusion. TENDONS: Extensor mechanism: Unremarkable. Medial retinaculum: Unremarkable. Lateral retinaculum: Unremarkable. Popliteus: Unremarkable. MUSCLES: Unremarkable. MENISCI: There is a tear of the posterior body of the medial meniscus. The lateral meniscus is unrem arkable. SOFT TISSUES: Unremarkable. LIGAMENTS: Anterior Cruciate: Unremarkable. Posterior Cruciate: Unremarkable. Medial Collateral:There is fluid around the medial collateral ligament. This is suggestive of a spra in. There is some fluid seen between the meniscus and the medial meniscus raising the question of me niscus capsular separation. Lateral Collateral: Unremarkable. OTHER: IMPRESSION: 1. Tear of the posterior body of the medial meniscus. 2. MCL sprain. Question of meniscocapsular separation. 3. Degenerative changes seen in the patellofemoral joint and the lateral femoral tibial joint. 4. Small joint effusion. DATA REPOSITORY:
== END ==
PROVIDERS: PCP Family Medicine; Visit Provider Nurse Practitioner Family
DX: S83.212A Bucket-handle tear of medial meniscus, current injury, left knee, initial encounter (principal); S83.412A Sprain of medial collateral ligament of left knee, initial encounter; M17.12 Unilateral primary osteoarthritis, left knee; X58.XXXA Exposure to other specified factors, initial encounter
CPT/HCPCS: 73721

== ENCOUNTER 2024-11-20 08:20 | Outpatient (CLI) | payer BC, SELFPAY ==
[2024-11-20 12:51] LABS: Anion Gap 7.7 mmol/L (3-11); BUN 16 mg/dL (7-18); CO2 28.3 mmol/L (21.0-32.0); CREATININE 1.4 mg/dL (0.70-1.30); Calcium 9.1 mg/dL (8.5-10.1); Calculated LDL 163 mg/dL (<100); Chloride 101 mmol/L (98-107); Cholesterol 215 mg/dL (<200); Glucose 103 mg/dL (74-106); HDL Cholesterol 38 mg/dL (>or=40); Potassium 4.3 mmol/L (3.5-5.1); Sodium 137 mmol/L (136-145); Triglyceride 73 mg/dL (<150)
[2024-11-20 12:57] LABS: Hemoglobin A1C 5.6 % (<5.7)
[2024-11-20 18:00] LABS: PSA, Screening 2.4 ng/mL (<=3.5)
== END 2024-11-20 08:21 | disposition home or self-care (01) ==
PROVIDERS: PCP Family Medicine; Referring Provider Nurse Practitioner Family; Visit Provider Nurse Practitioner Family
DX: Z13.1 Encounter for screening for diabetes mellitus (principal); Z13.220 Encounter for screening for lipoid disorders; I10 Essential (primary) hypertension; Z12.5 Encounter for screening for malignant neoplasm of prostate
CPT/HCPCS: 36415; 80048; 80061; 84153; 83036

== ENCOUNTER 2025-05-09 14:56 | Outpatient (CLI) | payer BC, SELFPAY ==
[2025-05-09 16:44] LABS: Abs Immature Grans 0.04 10^3/uL (0.0-0.06); HCT 45.1 % (40.0-50.0); HGB 15.5 g/dL (13.5-17.5); Immature Grans % 0.5 %; MCH 30.9 pg (27.0-33.0); MCHC 34.4 % (32.0-36.0); MCV 90 fL (80-95); MPV 10.0 fL (8.0-11.0); Platelet Count 184 10^3/uL (130-400); RBC 5.02 10^6/uL (4.36-5.78); RDW 13.0 % (11.8-14.1); RDW-SD 42.5 fL; WBC 8.50 10^3/uL (4.4-10.8)
[2025-05-09 17:45] LABS: ALT 63 U/L (10-49); AST 31 U/L (<34); Albumin 4.3 g/dL (3.2-5.0); Alkaline Phosphatase 76 U/L (46-116); Anion Gap 10.7 mmol/L (3-11); BUN 41 mg/dL (9-23); Bilirubin, Total 0.80 mg/dL (0.2-1.2); CO2 28.3 mmol/L (20.0-31.0); Calcium 9.9 mg/dL (8.3-10.6); Chloride 101 mmol/L (98-107); Glucose 123 mg/dL (74-106); Potassium 4.1 mmol/L (3.5-5.1); Sodium 140 mmol/L (136-145); Total Protein 7.4 g/dL (5.7-8.2)
== END 2025-05-09 14:57 | disposition home or self-care (01) ==
LOC: LBO 05-13 14:56
PROVIDERS: PCP Nurse Practitioner Family; Visit Provider Nurse Practitioner Family
DX: T46.5X5A Adverse effect of other antihypertensive drugs, initial encounter (principal); J02.9 Acute pharyngitis, unspecified
CPT/HCPCS: 36415; 80053; 85025

== ENCOUNTER 2025-06-04 08:54 | Outpatient (REF) | payer BC, SELFPAY ==
[2025-06-04 16:21] LABS: Anion Gap 10.2 mmol/L (3-11); BUN 17 mg/dL (9-23); CO2 26.8 mmol/L (20.0-31.0); Calcium 9.7 mg/dL (8.3-10.6); Chloride 105 mmol/L (98-107); Glucose 132 mg/dL (74-106); Potassium 4.0 mmol/L (3.5-5.1); Sodium 142 mmol/L (136-145)
== END 2025-06-04 08:55 | disposition home or self-care (01) ==
LOC: LBN 08:54
PROVIDERS: PCP Nurse Practitioner Family; Visit Provider Nurse Practitioner Family
DX: N17.9 Acute kidney failure, unspecified (principal)
CPT/HCPCS: 80048